=== PATIENT | female | born 1995 | race Caucasian/White ===

== ENCOUNTER 2017-04-27 18:32 | Emergency (ER) | payer OTHER ==
[~2017-04-27] VITALS: Ht 154.9 cm; Wt 62.0 kg
[2017-04-27 18:34] VITALS: BP 108/63; PULSE 64; RESP 20; O2SAT 96
--- NOTE | 2017-04-27 20:11 | PD ---
HPI Chief Complaint: Skin Problem Time Seen by Provider: 19:57 Travel History International Travel<30 days: Yes ([place]) Contact w/Intl Traveler<30days: Yes Name of Country Traveled to: [place] Traveled to known affect area: No History of Present Illness HPI Patient is a 21 year old female here for evaluation of skin lesions. She now lives in [place] but is visiting here for vacation. She has lesion on the back of the left thigh. It started out as an insect bite about 9 days ago. It started weeping about 6 days ago. It is spreading. There is no pain or pruritus. She has history of recurrent strep throat infections with decreased frequency since tonsillectomy. She did have sore throat around the time lesion developed. There has been no fever. She states mother told her that she had "blood poisoning" related to a similar appearing lesion when she was 4 years of age. She has not been sick otherwise. There has been no fever, cough, congestion, vomiting, diarrhea, eye redness, eye drainage, change in appetite, urinary problems. History Past Medical History Medical other: Yes (recurrent strep infections, bacteremia age 4 years related to skin lesion) Immunizations Current: Yes Tetanus Vaccination: < 5 Years Past Surgical History Tonsillectomy: Yes Social History Narrative Social History Patient was born in [place] but moved to [place] at age 8 where she grew up until recently. Her step-father is in the and family moved back to [place]. Patient is [place] now and may go to college here. Allergies-Medications (Allergen,Severity, Reaction): Coded Allergies: No Known Allergies (Unverified , 04/27/17) Reported Meds & Prescriptions Reported Meds & Active Scripts Active Mupirocin Topical (Mupirocin) 2 % Oint 1 Applic TOPICAL TID 7 Days Keflex (Cephalexin) 500 Mg Capsule 500 Mg PO BID 10 Days Bactrim DS (Sulfamethoxazole-Trimethoprim) 800-160 Mg Tab 1 Tab PO BID 10 Days ROS Except as stated in HPI: all other systems reviewed are Neg Physical Exam Narrative GENERAL APPEARANCE: The patient is a well-developed, well-nourished child in no acute distress. She is pink, alert and speaking clearly. SKIN: Skin is warm and dry. There is good turgor. No tenting. A 1 x 1.5 cm pink , slightly dry macular lesion is present on the upper posterior left thigh. Several about 5 mm erythematous satellite macules are present. No induration, swelling, tenderness, drainage, tracking. HEENT: Throat is clear without erythema, swelling or exudate. Uvula is midline. Mucous membranes are moist. Airway is patent. The pupils are equal, round and reactive to light. Extraocular motions are intact. No drainage or injection. Both tympanic membranes are without erythema, dullness or loss of landmarks. No perforation. No nasal congestion. NECK: Full range of motion without discomfort. LUNGS: Good air entry bilaterally with clear, equal breath sounds. CHEST: The chest wall is without retractions or use of accessory muscles. HEART: Regular rate and rhythm without murmur. ABDOMEN: Soft, nondistended, nontender with positive active bowel sounds. EXTREMITIES: Full range of motion of all extremities is present. No cyanosis or edema. Capillary refill is less than 2 seconds. NEUROLOGIC: The patient is alert, aware and appropriately interactive with parent and with examiner. Data Data Last Documented VS Vital Signs Date Time Temp Pulse Resp B/P Pulse Ox O2 Delivery O2 Flow Rate FiO2 04/27/17 18:34 64 20 108/63 96 Orders Sulfamet-Trimeth Ds 800-160 Mg (Bactrim (04/27/17 20:45) Cephalexin (Keflex) (04/27/17 20:45) Wound Culture And Gram Stain (04/27/17 20:43) MDM Medical Decision Making Medical Screen Exam Complete: Yes Emergency Medical Condition: Yes Medical Record Reviewed: Yes (No prior ED visit in our system.) Differential Diagnosis Impetigo, cellulitis, skin abscess, contact dermatitis Narrative Course 21 year old female with skin lesions most consistent with impetigo. I suspected staph etiology most likely staph aureus, but in view of patient's history of frequent strep infections I am also covering her for streptococcal etiology. Patient was started on Bactrim and Keflex in the ED. I decided against clindamycin as there is significant staph aureus resistance to clindamycin in our community. Patient is well-appearing and well-hydrated. I reviewed with her diagnosis and plan of care as well as signs and symptoms that should prompt return to the ER. Surface swab wound culture was obtained by me. Patient's contact number is [phone]. Diagnosis Primary Impression: Impetigo Patient Instructions: General Instructions, Impetigo (ED) Departure Forms: Tests/Procedures Additional Instructions: Bactrim/Sulfamethoxazole - oral antibiotic. Keflex/Cephalexin - oral antibiotic. Bactroban/Mupirocin - antibiotic ointment. Tylenol/Motrin for pain and fever. Return to ER if worsening or not better after 1 week of antibiotics. Med/Other Pt SpecificInfo: Prescription(s) given Scripts Mupirocin Topical 2 % Oint1 Applic TOPICAL TID 7 Days Ref 0 Prov:Mendy Rider MD 04/27/17 Cephalexin (Keflex)500 Mg [id number] Mg PO BID 10 Days Ref 0 Prov:Mendy Rider MD 04/27/17 Sulfamethoxazole-Trimethoprim (Bactrim DS)800-160 Mg Tab1 Tab PO BID 10 Days Ref 0 Prov:Mendy Rider MD 04/27/17 Disposition: 01 DISCHARGE HOME Condition: Stable Mendy Rider MD Apr 27, 2017 20:11
[2017-04-27] MEDS ORDERED: MUPI2OIN TOPICAL (20:43)
[2017-04-27] MEDS ORDERED: BACT800T5 PO (20:43)
[2017-04-27] MEDS ORDERED: CEPH-460 PO (20:43)
[2017-04-27] MEDS ORDERED: CEPHALEXIN MONOHYDRATE 500 MG CAP PO ONE (20:45)
[2017-04-27] MEDS ORDERED: SULFAMETHOXAZOLE-TRIMETHOPRIM DS 800-160 MG TAB PO ONE (20:45)
== END 2017-04-27 21:02 | disposition home or self-care (01) ==
LOC: NEPA 18:32
DX: L01.00 Impetigo, unspecified (principal); A49.01 Methicillin susceptible Staphylococcus aureus infection, unspecified site; J02.9 Acute pharyngitis, unspecified; Z79.899 Other long term (current) drug therapy
CPT/HCPCS: 86403; 87070; 87077; 87186; 87205; 99284

== ENCOUNTER 2017-05-05 23:50 | Emergency (ER) | payer OTHER ==
[~2017-05-05 23:50] MED LIST: BACT800T5 PO; CEPH-460 PO; MUPI2OIN TOPICAL
[2017-05-05 23:52] VITALS: BP 109/55; PULSE 69; RESP 16; TEMP 97.5; O2SAT 100
[2017-05-06] MEDS ORDERED: ZOFR4TAB PO (21:06)
== END 2017-05-06 03:40 | disposition left against medical advice (07) ==
LOC: NED 23:50
DX: R11.10 Vomiting, unspecified (principal); R10.9 Unspecified abdominal pain; Z53.21 Procedure and treatment not carried out due to patient leaving prior to being seen by health care provider
CPT/HCPCS: 99281

== ENCOUNTER 2017-05-06 19:10 | Emergency (ER) | payer OTHER ==
[2017-05-06 19:11] VITALS: BP 113/61; PULSE 97; RESP 15; TEMP 98.7; O2SAT 98
--- NOTE | 2017-05-06 19:36 | PD ---
Physical Exam Date Seen by Provider: May 06, 2017 Time Seen by Provider: 19:34 Narrative 21 YOWF C/O RASH FOR 2 DAYS. WYMAN, NAUSEA, MUSCLE PAIN. SUBJECTIVE FEVER. VS REVIEWED WAITING FOR BED PLACEMENT Data Data Last Documented VS Vital Signs Date Time Temp Pulse Resp B/P Pulse Ox O2 Delivery O2 Flow Rate FiO2 05/06/17 19:11 98.7 97 15 113/61 98 Room Air MDM Supervised Visit with JORGE: Herman Bloom May 06, 2017 19:36
[2017-05-06] MEDS ORDERED: SODIUM CHLOR 0.9% 1000 ML INJ 1,000 ML IV SCH (19:49)
--- NOTE | 2017-05-06 19:54 | PD ---
HPI Chief Complaint: Skin Problem Time Seen by Provider: 19:40 Travel History International Travel<30 days: No Contact w/Intl Traveler<30days: No Traveled to known affect area: No History of Present Illness HPI 21-year-old female presents for evaluation of nausea, vomiting, myalgias, headache. Symptoms started 4 days ago. Symptoms started shortly after beginning prescriptions for Bactrim, Keflex to treat impetigo which was diagnosed on April 27. She was seen here on April 27, found to have impetigo to the left posterior proximal thigh secondary to bug bites. The wound culture has grown out Staphylococcus aureus. She reports that the initial honey- colored crusting appearance is cleared up but she has several other papular lesions on the leg secondary to mosquito bites and she has been scratching at them. She is concerned that she may get these lesions infected as well. She denies any fevers or chills, abdominal pain, dysuria, hematuria, flank pain, chest pain or shortness of breath, cough or congestion. She is currently on her menstrual period. No other complaints. [facility] Past Medical History Immunizations Current: Yes Tetanus Vaccination: Unknown Influenza Vaccination: No ?: Not Past Surgical History Tonsillectomy: Yes Social History Alcohol Use: No Tobacco Use: No Substance Use: No Allergies-Medications (Allergen,Severity, Reaction): Coded Allergies: No Known Allergies (Unverified , 05/06/17) Reported Meds & Prescriptions Reported Meds & Active Scripts Active Zofran (Ondansetron HCl) 4 Mg Tab 4 Mg PO Q6HR PRN Mupirocin Topical (Mupirocin) 2 % Oint 1 Applic TOPICAL TID 7 Days Keflex (Cephalexin) 500 Mg Capsule 500 Mg PO BID 10 Days Bactrim DS (Sulfamethoxazole-Trimethoprim) 800-160 Mg Tab 1 Tab PO BID 10 Days Review of Systems Except as stated in HPI: all other systems reviewed are Neg Physical Exam Narrative GENERAL: Well-developed well-nourished female who is in no acute distress. SKIN: Warm and dry. Patient is several papular lesions on the legs, left leg greater than right leg. There is no erythema, no petechiae, no honey-colored crusting lesions or annular lesions. HEAD: Atraumatic. Normocephalic. EYES: Pupils equal and round. No scleral icterus. No injection or drainage. ENT: No nasal bleeding or discharge. Mucous membranes pink and moist. NECK: Trachea midline. No JVD. CARDIOVASCULAR: Regular rate and rhythm. No murmur appreciated. RESPIRATORY: No accessory muscle use. Clear to auscultation. Breath sounds equal bilaterally. GASTROINTESTINAL: Abdomen soft, non-tender, nondistended. Hepatic and splenic margins not palpable. MUSCULOSKELETAL: No obvious deformities. No clubbing. No cyanosis. No edema. NEUROLOGICAL: Awake and alert. No obvious cranial nerve deficits. Motor grossly within normal limits. Normal speech. PSYCHIATRIC: Appropriate mood and affect; insight and judgment normal. Data Data Last Documented VS Vital Signs Date Time Temp Pulse Resp B/P Pulse Ox O2 Delivery O2 Flow Rate FiO2 05/06/17 19:11 98.7 97 15 113/61 98 Room Air Orders Complete Blood Count With Diff (05/06/17 19:49) Comprehensive Metabolic Panel (05/06/17 19:49) Ondansetron Inj (Zofran Inj) (05/06/17 20:00) Sodium Chlor 0.9% 1000 Ml Inj (Ns 1000 M (05/06/17 19:49) Ed Urine Pregnancytest Poc (05/06/17 19:49) Magnesium (Mg) (05/06/17 19:49) Creatine Kinase (Cpk) (05/06/17 19:49) Labs Laboratory Tests Test 05/06/17 19:55 White Blood Count 6.8 TH/MM3 Red Blood Count 4.61 MIL/MM3 Hemoglobin 13.5 GM/DL Hematocrit 40.8 % Mean Corpuscular Volume 88.6 FL Mean Corpuscular Hemoglobin 29.4 PG Mean Corpuscular Hemoglobin 33.2 % Concent Red Cell Distribution Width 12.8 % Platelet Count 267 TH/MM3 Mean Platelet Volume 9.2 FL Neutrophils (%) (Auto) 58.9 % Lymphocytes (%) (Auto) 30.1 % Monocytes (%) (Auto) 7.3 % Eosinophils (%) (Auto) 3.1 % Basophils (%) (Auto) 0.6 % Neutrophils # (Auto) 4.0 TH/MM3 Lymphocytes # (Auto) 2.0 TH/MM3 Monocytes # (Auto) 0.5 TH/MM3 Eosinophils # (Auto) 0.2 TH/MM3 Basophils # (Auto) 0.0 TH/MM3 CBC Comment DIFF FINAL Differential Comment Sodium Level 133 MEQ/L Potassium Level 3.7 MEQ/L Chloride Level 101 MEQ/L Carbon Dioxide Level 27.2 MEQ/L Anion Gap 5 MEQ/L Blood Urea Nitrogen 13 MG/DL Creatinine 1.08 MG/DL Estimat Glomerular Filtration 65 ML/MIN Rate Random Glucose 63 MG/DL Calcium Level 8.7 MG/DL Magnesium Level 2.4 MG/DL Total Bilirubin 0.3 MG/DL Aspartate Amino Transf 27 U/L (AST/SGOT) Total Creatine Kinase 192 U/L Albumin 4.1 GM/DL MDM Medical Decision Making Medical Screen Exam Complete: Yes Emergency Medical Condition: Yes Medical Record Reviewed: Yes Differential Diagnosis Adverse reaction to oral antibiotics versus myositis versus dehydration versus rhabdomyolysis versus electrolyte abnormality versus gastroenteritis Narrative Course 21-year-old female who is developed nausea, vomiting, myalgias for the past 4 days, shortly after beginning Bactrim and Keflex to treat impetigo. On initial examination she appears well. Her abdomen is soft and nontender. She is not tachycardic or septic in appearance. She has several papular lesions on the lower extremity secondary to mosquito bites. The initial impetigo appears to have resolved. The patient was counseled the importance of avoiding scratching at the bug bites. She can use [id number] Benadryl for itching. Plan today is for basic lab work, IV fluids, IV Zofran. Lab work is reassuring. Her blood sugar was in the 60s and so she was given oral orange juice which she was able to tolerate. At this point in time the plan is to discharge the patient with a short course of Zofran for nausea. Recommended discontinuing the Bactrim and Keflex as her symptoms are likely a side effect to the antibiotics and there is no evidence of bacterial infection at this time. Recommended [id number] Benadryl for itching. Stable for discharge. Diagnosis Primary Impression: Adverse drug reaction Qualified Code: T88.7XXA - Adverse effect of drug, initial encounter Additional Impression: Bug bite without infection Qualified Code: W57.XXXA - Bug bite, initial encounter Additional Instructions: As discussed, quit taking the Bactrim and Keflex pills. Avoid scratching at the mosquito bites as this will increase risk of impetigo infection. Keep the area clean. Continue to apply antibiotic cream to the affected area. Can use [id number] Benadryl for itching per dosing instructions on the bottle. Do not drive or drink alcohol when taking Benadryl. Zofran for nausea. Return for any acutely new or worsening symptoms. Med/Other Pt SpecificInfo: Prescription(s) given Scripts Ondansetron (Zofran)4 Mg Tab4 Mg PO Q6HR PRN (NAUSEA OR VOMITING) #20 TAB Ref 0 Prov:Jason Restrepo MD 05/06/17 Disposition: 01 DISCHARGE HOME Condition: Stable Kong Philip May 06, 2017 19:54
[2017-05-06] MEDS ORDERED: ONDANSETRON HCL 4 MG/2 ML VIAL IVP ONE (20:00)
[2017-05-06 20:36] LABS: BASOPHIL % 0.6 % (0.0-2.0); EOSINOPHIL # 0.2 TH/MM3 (0-0.4); EOSINOPHIL % 3.1 % (0.0-4.0); HEMATOCRIT 40.8 % (35.0-46.0); HEMO FLAGS DIFF FINAL; LYMPH % 30.1 % (9.0-44.0); MEAN CELL VOLUME 88.6 FL (80.0-100.0); MEAN CORPUSCULAR HEMOGLOBIN 29.4 PG (27.0-34.0); MEAN CORPUSCULAR HGB CONC 33.2 % (32.0-36.0); MONO % 7.3 % (0.0-8.0); NEUT % 58.9 % (16.0-70.0); PLATELET COUNT 267 TH/MM3 (150-450); RED BLOOD COUNT 4.61 MIL/MM3 (4.00-5.30); RED CELL DISTRIBUTION WIDTH 12.8 % (11.6-17.2); WHITE BLOOD COUNT 6.8 TH/MM3 (4.0-11.0)
[2017-05-06 20:54] LABS: ANION GAP 5 MEQ/L (5-15); AST (GOT) 27 U/L (16-38); BICARBONATE 27.2 MEQ/L (21.0-32.0); BLOOD UREA NITROGEN 13 MG/DL (7-18); CHLORIDE 101 MEQ/L (98-107); GLOMERULAR FILTRATION RATE 65 ML/MIN (>89); MAGNESIUM 2.4 MG/DL (1.5-2.5); POTASSIUM 3.7 MEQ/L (3.5-5.1); SODIUM (NA) 133 MEQ/L (136-145)
[2017-05-06 21:02] LABS: CREATINE KINASE 192 U/L (26-192); TOTAL BILIRUBIN ADULT 0.3 MG/DL (0.2-1.0)
[2017-05-06] MEDS ORDERED: ZOFR4TAB PO (21:06)
[2017-05-06 21:16] LABS: ALT (GPT) 38 U/L (9-42)
[2017-05-06 21:18] LABS: ALKALINE PHOSPHATASE 52 U/L (45-117)
== END 2017-05-06 21:21 | disposition home or self-care (01) ==
LOC: NEPK 19:10
DX: T88.7XXA Unspecified adverse effect of drug or medicament, initial encounter (principal); W57.XXXA Bitten or stung by nonvenomous insect and other nonvenomous arthropods, initial encounter
CPT/HCPCS: 80053; 82550; 83735; 84703; 85025; 96361; 96374; 99284; J2405; J7030